=== PATIENT | male | born 1975 | race American Indian/Alaskan Native ===

== ENCOUNTER 2017-01-30 16:27 | Emergency (ER) | payer MEDICAID ==
[2017-01-30] MEDS ORDERED: cefTRIAXone (Rocephin) 250 mg Inj IM STA (16:56)
--- NOTE | 2017-01-30 16:59 | ED PDOC ---
HPI: Male Pain Time Seen by Provider: 01/30/17 16:50 Chief Complaint (Nursing): Male Genitourinary Chief Complaint (Provider): dysuria History Per: Patient (41 y/o male here with dysuria x 3 days. Patient states he noted symptoms after he was told by partner she was diagnosed with Trich. Denies any rash. Denies any back/abdominal pain/fevers/chills.) Past Medical History Reviewed: Historical Data, Nursing Documentation, Vital Signs Vital Signs: Last Vital Signs Temp 97.7 F 01/30/17 16:32 Pulse 94 H 01/30/17 16:32 Resp 16 01/30/17 16:32 BP 173/95 H 01/30/17 16:32 Pulse Ox 97 01/30/17 16:32 - Family History Family History: States: No Known Family Hx - Home Medications Home Medications: Ambulatory Orders Medication Instructions Recorded Ciprofloxacin HCl [Cipro] 500 mg PO BID #6 tablet 01/30/17 - Allergies Allergies/Adverse Reactions: Allergies Allergy/AdvReac Type Severity Reaction Status Date / Time No Known Allergies Allergy Verified 01/30/17 16:31 Review of Systems ROS Statement: Except As Marked, All Systems Reviewed And Found Negative Genitourinary Male: Positive for: Dysuria Physical Exam - Reviewed Nursing Documentation Reviewed: Yes Vital Signs Reviewed: Yes - Physical Exam Appears: Positive for: Well, Non-toxic, No Acute Distress Head Exam: Positive for: ATRAUMATIC, NORMAL INSPECTION, NORMOCEPHALIC Skin: Positive for: Normal Color, Warm, DRY Eye Exam: Positive for: EOMI, Normal appearance, PERRL ENT: Positive for: Normal ENT Inspection Neck: Positive for: Normal, Painless ROM Cardiovascular/Chest: Positive for: Regular Rate, Rhythm Respiratory: Positive for: CNT, Normal Breath Sounds Gastrointestinal/Abdominal: Positive for: Normal Exam, Bowel Sounds, Soft Back: Positive for: Normal Inspection Extremity: Positive for: Normal ROM Neurologic/Psych: Positive for: Alert, Oriented - ECG O2 Sat by Pulse Oximetry: 97 - Progress ED Course And Treament: Rocephin 25 0 mg IM x 1 dose Zithromax 1 gm po x 1 dose Disposition - Clinical Impression Clinical Impression: Urethritis - Disposition Referrals: formerly [facility] [Outside] Disposition: Routine/Home Disposition Time: 17:46 Condition: FAIR Prescriptions: Ciprofloxacin HCl [Cipro] 500 mg PO BID #6 tablet Instructions: Nonspecific Urethritis in Men (ED) Forms: [employer] (Uzbek)
[2017-01-30 17:27] LABS: RBC URINE 1 /hpf (0-3); URINE BILIRUBIN NEGATIVE (NEGATIVE); URINE BLOOD NEGATIVE (NEGATIVE); URINE COLOR YELLOW (YELLOW); URINE GLUCOSE (UA) NEG (Normal); URINE KETONE NEGATIVE (NEGATIVE); URINE LEUKOCYTE ESTERASE SMALL Leu/uL (Negative); URINE PROTEIN NEGATIVE (NEGATIVE); URINE UROBILINOGEN 0.2-1.0 mg/dL (0.2-1.0); WBC URINE 26 /hpf (0-5)
[2017-01-30] MEDS ORDERED: cefTRIAXone (Rocephin) 250 mg Inj ONE (17:54)
[2017-01-30 18:18] VITALS: BP 128/76; PULSE 78; RESP 18; TEMP 97; O2SAT 98
== END 2017-01-30 18:18 | disposition home or self-care (01) ==
LOC: H.ER 16:27
DX: N34.2 Other urethritis (principal)
CPT/HCPCS: 81003; 87086; 87491; 87591; 96372; 99282; J0696